=== PATIENT | female | born 1980 | race American Indian/Alaskan Native ===

== ENCOUNTER 2020-07-30 14:37 | Emergency (ER) | payer MEDICAID ==
[2020-07-30 14:43] VITALS: BP 153/93
[2020-07-30 17:09] LABS: Basophils % (Auto) 0.5 % (0.0-1.8); Eosinophils # (Auto) 0.1 K/mm3 (0.0-0.4); Hemoglobin 11.5 gm/dl (10.1-14.3); Lymphocytes # (Auto) 2.3 K/mm3 (1.2-5.4); Lymphocytes % (Auto) 25.7 % (13.4-35.0); Mean Corpuscular HGB Conc 33 % (30-34); Mean Corpuscular Volume 84 fl (79-97); Monocytes # (Auto) 0.7 K/mm3 (0.0-0.8); Monocytes % (Auto) 7.6 % (0.0-7.3); Platelet Count 288 K/mm3 (140-440); Red Blood Count 4.19 M/mm3 (3.65-5.03); Red Cell Distribution Width 13.8 % (13.2-15.2)
[2020-07-30 17:32] LABS: Alanine Aminotransferase 7 units/L (7-56); Albumin 3.7 g/dL (3.9-5); Blood Urea Nitrogen 6 mg/dL (7-17); Calcium 9.7 mg/dL (8.4-10.2); Hemolysis Index 1
[2020-07-30 17:35] LABS: BUN/Creatinine Ratio 15
== END 2020-07-30 20:45 | disposition left against medical advice (07) ==
LOC: ED 14:37
DX: Z53.21 Procedure and treatment not carried out due to patient leaving prior to being seen by health care provider (principal)
CPT/HCPCS: 36415; 80053; 84702; 85025

== ENCOUNTER 2020-12-28 02:49 | Inpatient (IN) | payer MEDICAID ==
[2020-12-28] MEDS ORDERED: ePHEDrine SULFATE 50 MG/1 ML INJ IV PRN ×2 (04:43→15:59)
[2020-12-28] MEDS ORDERED: MINERAL OIL 30 ML ORAL LIQD PO PRN (04:43)
[2020-12-28] MEDS ORDERED: TERBUTALINE 1 MG/1 ML INJ SUB-Q PRN (04:43)
[2020-12-28] MEDS ORDERED: AMPICILLIN/NS 2 GM/100 ML 2 GM/100 ML BAG IV ONE (04:43)
[2020-12-28] MEDS ORDERED: LOPERAMIDE 2 MG CAP PO PRN (04:43)
[2020-12-28] MEDS ORDERED: LIDOCAINE (2%) 20 MG/1 ML VIAL 20 ML MDV INFILTRATI ONE (04:43)
[2020-12-28] MEDS ORDERED: miSOPROStol 200 MCG TAB PR PRN (04:43)
[2020-12-28] MEDS ORDERED: ACETAMINOPHEN 325 MG TAB PO PRN (04:43)
[2020-12-28] MEDS ORDERED: BUTORPHANOL 2 MG/1 ML INJ IV PRN (04:43)
[2020-12-28] MEDS ORDERED: METHYLERGONOVINE MALEATE 0.2 MG/ML VIAL IM PRN (04:43)
[2020-12-28] MEDS ORDERED: OXYTOCIN 10 UNIT/1 ML INJ IM PRN (04:43)
[2020-12-28] MEDS ORDERED: CARBOPROST TROMETHAMINE 250 MCG/1 ML INJ IM PRN (04:43)
[2020-12-28] MEDS ORDERED: OXYTOCIN DRIP 30 UNITS/500 ML BAG IV SCH ×2 (05:00→10:00)
[2020-12-28 05:44] LABS: Hematocrit 36.6 % (30.3-42.9); Hemoglobin 11.9 gm/dl (10.1-14.3); Mean Corpuscular HGB Conc 33 % (30-34); Mean Corpuscular Volume 84 fl (79-97); Platelet Count 183 K/mm3 (140-440); Red Blood Count 4.37 M/mm3 (3.65-5.03); Red Cell Distribution Width 19.3 % (13.2-15.2)
[2020-12-28 05:48] LABS: Bacteria,Urine 2+ /HPF (Negative); Bilirubin,Urine NEG (Negative); Blood,Urine NEG (Negative); Color,Urine Yellow (Yellow); Protein,Urine <15 mg/dL mg/dL (Negative); Urobilinogen,Urine < 2.0 mg/dL (<2.0); WBC,Urine < 1.0 /HPF (0.0-6.0)
[2020-12-28 05:56] LABS: Amphetamine Screen,Urine PRESUMPTIVE NEGATIVE; Benzodiazepines Screen,Urine PRESUMPTIVE NEGATIVE; Cannabinoid Screen,Urine PRESUMPTIVE NEGATIVE; Cocaine Screen,Urine PRESUMPTIVE NEGATIVE; Methadone Screen,Urine PRESUMPTIVE NEGATIVE; Opiate Screen,Urine PRESUMPTIVE NEGATIVE
[2020-12-28 06:07] LABS: Alanine Aminotransferase 10 units/L (7-56); Uric Acid 4.4 mg/dL (3.5-7.6)
[2020-12-28] MEDS: LACTATED RINGERS 1,000 ML IV SCH ×2 (06:09→10:31)
[2020-12-28] MEDS: ONDANSETRON 4 MG/2 ML INJ IV PRN ×2 (06:09→13:14)
[2020-12-28] MEDS: fentaNYL 100 MCG/2 ML INJ IV PRN ×2 (06:10→13:13)
[2020-12-28 06:15] LABS: Hepatitis C Virus Antibody Non-Reactive (NonReactive)
--- NOTE | 2020-12-28 06:26 | History and Physical Report ---
History of Present Illness Date of examination: 12/28/20 Date of admission: 12/28/20 Chief complaint: ctx History of present illness: at 38.3wks by EDC 01/08/21 per pt report. care at [facility]. Pt gave H/O having ctx and was seen at [place] and discharged home. Pt states that she has Gest HTN and Gest DM diet controlled. pt denies h eadache. Denies LOF or vag bleed. Pt desires no future fertility. Pt is also followed by [facility], last seen on 12/26/20 with [facility] / and JAMAL 11. Past History Past Medical History: other (Obesity, gest DM and gest HTN) Past Surgical History: no surgical history - Obstetrical History Expected Date of Delivery: 01/08/21 Actual Gestation: 38 Week(s) 3 Day(s) : 4 Hx # Term Pregnancies: 3 Number of Living Children: 3 Medications and Allergies Allergies Allergy/AdvReac Type Severity Reaction Status Date / Time No Known Allergies Allergy Verified 12/08/18 06:42 Active Meds: Active Medications Acetaminophen (Acetaminophen 325 Mg Tab) 650 mg PO Q4H PRN PRN Reason: Pain, Mild (1-3) Butorphanol Tartrate (Butorphanol 2 Mg/1 Ml Inj) 1 mg IV Q2H PRN PRN Reason: Pain, Moderate(4-6) LABOR PAIN Carboprost Tromethamine (Carboprost Tromethamine 250 Mcg/1 Ml Inj) 250 mcg IM ONCE PRN PRN Reason: Uterine Bleeding Ephedrine Sulfate (Ephedrine Sulfate 50 Mg/1 Ml Inj) 10 mg IV Q2M PRN PRN Reason: Hypotension Fentanyl (Fentanyl 100 Mcg/2 Ml Inj) 100 mcg IV Q2H PRN PRN Reason: Pain,Severe (7-10) LABOR PAIN Last Admin: 12/28/20 06:10 Dose: 100 mcg Documented by: Lactated Ringer's (Lactated Ringers) 1,000 mls @ 125 mls/hr IV DIRECT GREGORY Last Admin: 12/28/20 06:09 Dose: 125 mls/hr Documented by: Oxytocin/Sodium Chloride (Pitocin/Ns 30 Unit/500ml) 30 units in 500 mls @ 40 mls/hr IV TITR GREGORY; Protocol Labetalol HCl (Labetalol 100 Mg Tab) 100 mg PO BID GREGORY Last Admin: 12/28/20 05:10 Dose: 100 mg Documented by: Loperamide HCl (Loperamide 2 Mg Cap) 2 mg PO ONCE PRN PRN Reason: give with Hemabate Methylergonovine Maleate (Methylergonovine Maleate 0.2 Mg/Ml Vial) 0.2 mg IM ONCE PRN PRN Reason: Uterine Bleeding Mineral Oil (Mineral Oil 30 Ml Oral Liqd) 30 ml PO QHS PRN PRN Reason: Constipation Misoprostol (Misoprostol 200 Mcg Tab) 800 mcg NC ONCE PRN PRN Reason: Uterine Bleeding Ondansetron HCl (Ondansetron 4 Mg/2 Ml Inj) 4 mg IV Q8H PRN PRN Reason: Nausea And Vomiting Last Admin: 12/28/20 06:09 Dose: 4 mg Documented by: Oxytocin (Oxytocin 10 Unit/1 Ml Inj) 10 unit IM ONCE PRN PRN Reason: Uterine Bleeding Terbutaline Sulfate (Terbutaline 1 Mg/1 Ml Inj) 0.25 mg SUB-Q ONCE PRN PRN Reason: Hyperstimulation/Hypertonicity Review of Systems All systems: negative (contractions) - Vital Signs Vital signs: Vital Signs Pulse BP Pulse Ox 83 147/97 98 12/28/20 03:32 12/28/20 03:32 12/28/20 03:32 Temp Pulse Resp BP Pulse Ox 98.3 F 84 18 149/98 98 12/28/20 03:54 12/28/20 06:02 12/28/20 03:54 12/28/20 06:02 12/28/20 05:07 - Physical Exam Breasts: Positive: deferred Cardiovascular: Regular rate Abdomen: Positive: normal appearance (obese), soft Vagina: Positive: normal moisture Uterus: Positive: enlarged (non-tender gravid) - Obstetrical FHR: category 1 Uterine Contraction Monitor Mode: External Cervical Dilatation: 4.5 (previously 2cm by triage ) Cervical Effacement Percentage: 70 station: -1 Uterine Contraction Pattern: Irregular Uterine Contraction Intensity: Moderate Results Result Diagrams: 12/28/20 05:25 12/28/20 05:25 Abnormal lab results 12/28/20 12/28/20 Range/Units 05:25 05:25 MCH 27 L (28-32) pg RDW 19.3 H (13.2-15.2) % Creatinine 0.5 L (0.6-1.2) mg/dL All other labs normal. Assessment and Plan Term preg, advanced maternal age with gest DM and gest HTN, now with elevated BP and no records 1. Admit to labor and delivery, unknown GBS and amp to be given 2. PIH labs and labetalol 100mg bid and will add mag sulfate if severe preeclampsia 3. Accucheck every 2hrs in active labor, now 104 4. IV pain med fentanyl given now prn and pt may have epidural when desired All questions encouraged and answered
[2020-12-28] MEDS ORDERED: PROMETHAZINE 25 MG TAB PO PRN (06:34)
[2020-12-28] MEDS ORDERED: hydrALAZINE 20 MG/1 ML INJ IV PRN (06:42)
[2020-12-28] MEDS ORDERED: MAGNESIUM SULFATE 4 GM/100 ML BAG IV ONE (09:47)
[2020-12-28] MEDS ORDERED: MAGNESIUM SULFATE 40GM/1000ML 40 GM/1,000 ML BAG IV SCH (10:00)
--- NOTE | 2020-12-28 10:03 | Event Note ---
Date: 12/28/20 BP increasing. Labetalol increased to 200 mg po BID. Patient also has hydralazine ordered for any markedly elevated BPs. Patient has nausea and swe lling. Denies headache at this time. Magnesium sulfate ordered due to preeclampsia with severe features. Pt. to have Jameson, strict I&O, and SCDs. Pitocin ordered for augmentation of labor. SVE 4.5/80/-3. Discussed all of the above with patient and patient's nurse. Consulted Dr. Victoria re: this patient.
[2020-12-28] MEDS ORDERED: AMPICILLIN/NS 1 GM/50 ML 1 GM/50 ML BAG IV SCH (11:00)
[2020-12-28] MEDS ORDERED: NALOXONE 2 MG/2 ML INJ IV PRN (15:59)
--- NOTE | 2020-12-28 15:59 | Anesthesia Consultation ---
Anesthesia Consult and Med Hx Date of service: 12/28/20 - Airway Anesthetic Teeth Evaluation: Good ROM Head & Neck: Adequate Mental/Hyoid Distance: Adequate Mallampati Class: Class II Intubation Access Assessment: Good - Pulmonary Exam CTA: Yes - Cardiac Exam Cardiac Exam: RRR - Pre-Operative Health Status ASA Pre-Surgery Classification: ASA1 Proposed Anesthetic Plan: Epidural - Pulmonary Hx Asthma: No COPD: No Hx Pneumonia: No - Cardiovascular System Hx Hypertension: Yes (2019 and current) - Central Nervous System Hx Seizures: No Hx Psychiatric Problems: No - Endocrine Hx Renal Disease: No Hx End Stage Renal Disease: No Hx Hypothyroidism: No Hx Hyperthyroidism: No - Hematic Hx Anemia: No Hx Sickle Cell Disease: No - Other Systems Hx Alcohol Use: No
[2020-12-28] MEDS ORDERED: fentaNYL-BUPIV 2 MCG/ML-0.125% 200 MCG/100 ML BAG EPIDURAL SCH (16:00)
--- NOTE | 2020-12-28 16:01 | Progress Note ---
Regional Anesthesia Block - Regional Anesthesia Block Start Time: 15:46 Stop Time: 15:51 Performed By:: AMOS YEUNG Procedure: Patient is requesting combined spinal epidural for labor and pain. H&P, labs were reviewed. All questions and concerns were answered. Informed consent was obtained. Timeout performed. Patient in sitting position on side of bed. Sterile prep and drape was performed. 3 mL 1% lidocaine skin wheal at L [3]-L [4]. 18-gauge Tuohy epidural needle advanced to [id number] using air technique, []. 27-gauge spinal needle advanced, positive free-flowing CSF. Spinal dose of [Precedex 10mcg]. Epidural catheter advanced to [15] cm. [negative] Aspiration, [negative] test dose. Sterile dressing applied. Patient tolerated procedure well.
[2020-12-28] MEDS ORDERED: diphenhydrAMINE 25 MG CAP PO PRN (18:51)
[2020-12-28] MEDS ORDERED: WITCH HAZEL/ GLYCERIN PAD TP PRN (18:51)
[2020-12-28] MEDS ORDERED: LANOLIN/ZINC/DIMETHICONE (LANSINOH) 7 GM TP PRN (18:51)
[2020-12-28] MEDS ORDERED: ONDANSETRON 4 MG/2 ML INJ IV PRN (18:51)
--- NOTE | 2020-12-28 18:59 | Procedure Note ---
OB Delivery Note - Delivery Date of Delivery: 12/28/20 Surgeon: DAVIDA CASTRO Estimated blood loss: 300cc - Vaginal Delivery presentation: vertex Delivery position: OA Intrapartum events: preeclampsia, shoulder dystocia Delivery induction: none Delivery augmentation: pitocin Delivery monitor: external FHT, external uterine Route of delivery: Delivery placenta: spontaneous Delivery cord: 3 umbilical vessels Episiotomy: none Delivery laceration: none Anesthesia: epidural Delivery comments: Spontaneous vaginal delivery at 18:24 of liveborn male infant weighing 7 lb. 13 oz. over intact perineum with apgars of 8/9. Preeclampsia with severe features, on magnesium sulfate. Diet controlled GDM. Left anterior shoulder dystocia resolved with McRobert's maneuver, suprapubic pressure, and delivery of posterior arm. Head to body delivery interval 30 seconds. Baby placed skin to skin with mom immediately after delivery. Spontaneous cry and respirations. Baby dried with warm towels and suctioned with bulb syringe. 3 vessel cord double clamped and cut (delayed cord clamping). Cord blood obtained. Spontaneous delivery of intact placenta and membranes at 18:32. Pitocin to IV fluids after delivery of placenta. EBL 300 cc. Cytotec 800 mcg given rectally due to atony. Fundus firm and midline at umbilicus. No lacerations noted. Vaginal sweep negative. Sponge count correct. Baby moving all extremities well.
[2020-12-28] MEDS: oxyCODONE /ACETAMINOPHEN 5-325MG TAB PO PRN (21:20)
[2020-12-28] MEDS ORDERED: miSOPROStol 200 MCG TAB ONE (21:55)
[2020-12-29 00:22] LABS: Hematocrit 36.5 % (30.3-42.9); Hemoglobin 11.6 gm/dl (10.1-14.3)
[2020-12-29] MEDS: oxyCODONE /ACETAMINOPHEN 5-325MG TAB PO PRN ×3 (03:28→20:37)
--- NOTE | 2020-12-29 04:29 | Ultrasound Report ---
ULTRASOUND PELVIS INDICATION: check for retained placenta. TECHNIQUE: Transabdominal. Duplex Color Doppler used: Yes. COMPARISON: None available FINDINGS: Uterus: Enlarged uterus Endometrial complex: Normal measuring 5 mm. Mass lesions: None. Additional findings: None. Right Ovary --not visualized secondary to bowel gas Left Ovary--not visualized secondary to bowel gas Urinary Bladder: Normal. Free Fluid: None. Additional Findings: None. IMPRESSION: 1. No acute sonographic abnormality of the pelvis. No sonographic evidence for retained products of c onception Signer Name: Cesar Bloom MD Signed: 12/29/2020 4:24 AM Workstation Name: [id number]
[2020-12-29 06:54] LABS: Hematocrit 31.5 % (30.3-42.9); Hemoglobin 10.6 gm/dl (10.1-14.3)
--- NOTE | 2020-12-29 09:54 | Post Anesthesia Evaluation ---
- Post Anesthesia Evaluation Patient Participated: Yes Airway Patent: Yes Stable Respiratory Function: Yes Nausea/Vomiting: No Temp > 96.8F: Yes Pain Manageable: Yes Adequeate Hydration: Yes Anesthesia Complications: No Block Receding Appropriately: Yes Patient on Ventilator: No
[2020-12-29] MEDS: FERROUS SULFATE 325 MG TAB PO SCH (10:01)
--- NOTE | 2020-12-29 13:10 | Progress Note ---
Assessment and Plan A: PP Day #1 Preeclampsia GDM A1 P: Follow Routine Orders Continue Labetalol 100mg PO BID Start GDM Diet Start Accuchecks after meals Subjective - Subjective Date of service: 12/29/20 Patient reports: appetite normal, voiding normally, pain well controlled, ambulating normally : doing well, bottle feeding (and ) Objective - Vital Signs Latest vital signs: Vital Signs Temp Pulse Resp BP BP Pulse Ox Pulse Ox 12/29/20 12:20 98.3 F 84 18 121/55 12/29/20 08:00 97.9 F 94 H 16 135/84 95 95 12/29/20 07:33 83 136/89 12/29/20 07:28 83 135/87 12/29/20 07:25 98.1 F 12/29/20 07:13 84 133/78 12/29/20 06:59 88 145/87 12/29/20 06:43 84 122/75 12/29/20 06:28 92 H 141/85 12/29/20 06:25 78 145/87 12/29/20 06:01 95 H 146/90 12/29/20 05:31 86 118/67 12/29/20 05:01 96 H 117/72 12/29/20 04:31 96 H 111/62 12/29/20 04:12 91 H 112/57 12/29/20 03:31 98 H 126/78 12/29/20 03:01 100 H 132/81 12/29/20 02:31 96 H 130/77 12/29/20 02:01 103 H 130/78 12/29/20 01:31 94 H 125/68 12/29/20 01:01 92 H 123/71 12/29/20 00:31 98 H 123/73 12/29/20 00:00 91 H 145/75 12/28/20 23:45 101 H 132/61 12/28/20 23:30 104 H 129/91 12/28/20 23:15 95 H 121/75 12/28/20 23:00 96 H 130/81 12/28/20 22:45 95 H 134/81 12/28/20 22:30 95 H 133/83 12/28/20 22:15 92 H 152/93 12/28/20 22:06 97 H 180/96 12/28/20 21:45 97 H 160/99 12/28/20 21:30 93 H 159/96 12/28/20 21:15 98 H 147/83 12/28/20 21:08 164/98 12/28/20 21:00 94 H 164/98 12/28/20 20:45 100 H 158/96 12/28/20 20:30 101 H 154/96 12/28/20 20:08 97 H 153/86 12/28/20 19:53 106 H 144/65 12/28/20 19:43 167/101 12/28/20 19:42 99 H 167/101 12/28/20 19:32 106 H 181/100 12/28/20 19:30 105 H 178/97 12/28/20 19:23 109 H 192/128 12/28/20 18:53 84 150/76 12/28/20 18:42 93 H 100 12/28/20 18:38 88 116/59 12/28/20 18:37 89 100 12/28/20 18:35 97.4 F L 20 12/28/20 18:33 129/79 12/28/20 18:32 92 H 99 12/28/20 18:27 94 H 100 12/28/20 18:23 95 H 140/82 12/28/20 18:22 100 H 99 12/28/20 18:17 91 H 100 12/28/20 18:12 93 H 97 12/28/20 18:10 85 110/63 12/28/20 18:07 83 98 12/28/20 18:02 93 H 99 12/28/20 17:57 97 H 100 12/28/20 17:54 82 119/66 12/28/20 17:52 93 H 99 12/28/20 17:47 90 99 12/28/20 17:42 106 H 98 12/28/20 17:38 113 H 90 12/28/20 17:37 105 H 97 12/28/20 17:32 81 99 12/28/20 17:30 97.7 F 12/28/20 17:27 72 99 12/28/20 17:23 77 120/67 12/28/20 17:22 84 100 12/28/20 17:17 75 98 12/28/20 17:12 74 99 12/28/20 17:09 78 120/69 12/28/20 17:07 75 99 12/28/20 17:02 84 99 12/28/20 16:57 81 100 12/28/20 16:53 77 134/84 12/28/20 16:52 76 100 12/28/20 16:47 68 100 12/28/20 16:42 72 100 12/28/20 16:37 84 119/78 100 12/28/20 16:32 72 100 12/28/20 16:27 72 100 12/28/20 16:22 84 131/87 100 12/28/20 16:19 86 127/96 12/28/20 16:17 71 100 12/28/20 16:16 68 133/86 12/28/20 16:13 67 130/86 12/28/20 16:12 80 93 12/28/20 16:10 83 132/89 12/28/20 16:07 84 143/83 98 12/28/20 16:04 86 145/76 12/28/20 16:02 76 96 12/28/20 16:01 94 H 139/88 12/28/20 15:58 92 H 144/93 12/28/20 15:57 81 96 12/28/20 15:55 96 H 140/91 93 12/28/20 15:53 86 144/72 12/28/20 15:52 88 97 12/28/20 15:50 87 187/76 12/28/20 15:47 86 169/93 95 12/28/20 15:45 88 174/107 94 12/28/20 15:42 96 H 99 12/28/20 15:39 81 94 12/28/20 15:37 79 95 12/28/20 15:33 79 94 12/28/20 15:32 82 98 12/28/20 15:30 98 F 21 12/28/20 15:27 94 H 95 12/28/20 15:22 85 99 12/28/20 15:17 73 167/98 97 12/28/20 15:15 76 192/100 12/28/20 15:12 78 99 12/28/20 15:07 81 96 12/28/20 15:04 81 94 12/28/20 15:02 73 96 12/28/20 14:58 89 94 12/28/20 14:57 82 97 12/28/20 14:52 78 97 12/28/20 14:51 87 93 12/28/20 14:47 81 95 12/28/20 14:45 82 93 12/28/20 14:44 81 153/98 12/28/20 14:42 85 96 12/28/20 14:37 72 96 12/28/20 14:34 46 L 93 12/28/20 14:32 80 97 12/28/20 14:27 77 95 12/28/20 14:26 71 93 12/28/20 14:22 88 99 12/28/20 14:17 71 96 12/28/20 14:14 77 145/81 12/28/20 14:12 88 97 12/28/20 14:07 87 99 12/28/20 14:02 66 96 12/28/20 13:57 83 96 12/28/20 13:52 64 97 12/28/20 13:47 70 97 12/28/20 13:44 75 134/81 12/28/20 13:42 78 97 12/28/20 13:37 93 H 94 12/28/20 13:35 96 H 94 12/28/20 13:32 80 95 12/28/20 13:27 86 95 12/28/20 13:25 85 94 12/28/20 13:22 74 95 12/28/20 13:17 74 98 12/28/20 13:15 72 160/96 12/28/20 13:13 18 12/28/20 13:12 81 98 Intake and Output 12/28/20 12/29/20 12/29/20 22:59 06:59 14:59 Intake Total 559.300 240 Output Total 1700 1200 500 Balance -1140.700 -1200 -260 Intake: IV 559.300 MAGNESIUM SULFATE 40GM/ 545 1000ML 40 gm In 1,000 ml @ 2 GM/HR 50 mls/hr IV DIRECT GREGORY Rx#:[id number] PITOCin/NS 30 UNIT/500ML 14.300 30 units In 500 ml @ 2 mls/hr IV TITR GREGORY Rx#: [id number] Oral 240 Output: Urine 1700 700 500 Indwelling Catheter 1700 700 Void 500 Other 500 Other: Total, Intake Amount 240 Total, Output Amount 900 200 200 Estimated Blood Loss 300 - Exam Breasts: Present: normal Cardiovascular: Present: Regular rate Lungs: Present: Clear to auscultation, Normal air movement Abdomen: Present: normal appearance, soft, normal bowel sounds Uterus: Present: normal, firm, fundal height below umbilicus Extremities: Present: normal - Labs Labs: Abnormal lab results 12/28/20 12/28/20 12/29/20 Range/Units 17:42 23:30 06:35 Magnesium 5.20 H 4.10 H 3.20 H (1.7-2.3) mg/dL
[2020-12-30] MEDS: oxyCODONE /ACETAMINOPHEN 5-325MG TAB PO PRN ×2 (05:33→18:49)
[2020-12-30] MEDS: FERROUS SULFATE 325 MG TAB PO SCH (09:41)
--- NOTE | 2020-12-30 14:23 | Progress Note ---
Assessment and Plan PPD#2 with gest HTN not well controlled and having heavy vag bleeding 1. continue labetalol 2000mg bid and add norvasc 5mg daily if same elevated 2. will check ultrasound for retained products post delivery 3. Will check CBC now 4. May discharge home in am if BP stable and no retained products Subjective Date of service: 12/30/20 Principal diagnosis: PPD#2, gest HTN not well controlled and with heavy vag bleed Interval history: Pt is breast feeding and receiving labetalol 100mg bid; I assisted pt to restroom while rounding and she showed with a large clot approx 3x4cm size and dark in color. Pt denies dizziness or headache. Pt also states she is not is much pain. Voiding without difficulty. pt denies headache. Objective - Constitutional Vitals: Vital Signs - 12hr 12/30/20 12/30/20 12/30/20 04:00 05:33 06:30 Temperature 98.4 F Pulse Rate 68 Respiratory 18 Rate Blood Pressure Blood Pressure 112/74 [Right] O2 Sat by Pulse Oximetry O2 Sat by Pulse 98 98 Oximetry [ Anterior Bilateral Throughout] 12/30/20 12/30/20 12/30/20 08:05 09:07 09:41 Temperature 98.3 F Pulse Rate 79 77 Respiratory 18 Rate Blood Pressure 136/80 149/89 Blood Pressure [Right] O2 Sat by Pulse 93 Oximetry O2 Sat by Pulse 98 Oximetry [ Anterior Bilateral Throughout] 12/30/20 11:28 Temperature 98.5 F Pulse Rate Respiratory 18 Rate Blood Pressure 132/77 Blood Pressure [Right] O2 Sat by Pulse Oximetry O2 Sat by Pulse Oximetry [ Anterior Bilateral Throughout] General appearance: Present: no acute distress - Respiratory Respiratory effort: normal - Breasts Breasts: normal - Cardiovascular Rhythm: regular Extremities: No edema - Gastrointestinal General gastrointestinal: Present: soft, non-tender - Genitourinary Female genitourinary: other (Uterine fundus non-tender and 1cm above umbilicus after voiding) - Neurologic Neurologic: moves all extremities - Psychiatric Psychiatric: cooperative - Labs CBC & Chem 7: 12/29/20 06:35 12/28/20 05:25 Medications & Allergies - Medications Allergies/Adverse Reactions: Allergies No Known Allergies Allergy (Verified 12/08/18 06:42) Home Medications: Home Medications Medication Instructions Recorded Confirmed Last Taken Type No Known Home Medications [No 12/29/20 12/29/20 Unknown History Reported Home Medications] Active Medications: Generic Name Dose Route Start Last Admin Trade Name Freq PRN Reason Stop Dose Admin Acetaminophen 650 mg 12/28/20 04:43 Acetaminophen 325 Mg Tab PO Q4H PRN Pain, Mild (1-3) Amlodipine Besylate 5 mg 12/31/20 10:00 Amlodipine 5 Mg Tab PO QDAY GREGORY Butorphanol Tartrate 1 mg 12/28/20 04:43 Butorphanol 2 Mg/1 Ml Inj IV Q2H PRN Pain, Moderate(4-6) LABOR PAIN Diphenhydramine HCl 25 mg 12/28/20 18:51 Diphenhydramine 25 Mg Cap PO Q6H PRN Itching Ephedrine Sulfate 10 mg 12/28/20 15:59 Ephedrine Sulfate 50 Mg/1 Ml Inj IV Q2M PRN Hypotension Fentanyl 100 mcg 12/28/20 04:43 12/28/20 13:13 Fentanyl 100 Mcg/2 Ml Inj IV 100 mcg Q2H PRN Administration Pain,Severe (7-10) LABOR PAIN Ferrous Sulfate 325 mg 12/29/20 10:00 12/30/20 09:41 Ferrous Sulfate 325 Mg Tab PO 325 mg QDAY GREGORY Administration Hydralazine HCl 5 mg 12/28/20 06:42 12/28/20 19:43 Hydralazine 20 Mg/1 Ml Inj IV 5 mg Q30MIN PRN Administration Hypertension Lactated Ringer's 1,000 mls @ 125 mls/hr 12/28/20 04:45 12/28/20 10:31 Lactated Ringers IV 125 mls/hr DIRECT GREGORY Administration Oxytocin/Sodium Chloride 30 units in 500 mls @ 40 mls/hr 12/28/20 05:00 Pitocin/Ns 30 Unit/500ml IV TITR GREGORY Protocol Ampicillin Sodium 1 gm in 50 mls @ 100 mls/hr 12/28/20 11:00 12/28/20 10:30 Ampicillin/Ns 1 Gm/50 Ml IV 100 mls/hr Q4H GREGORY Administration Protocol Magnesium Sulfate 40 gm in 1,000 mls @ 50 mls/hr 12/28/20 10:00 12/28/20 22:00 Magnesium Sulfate 40gm/1000ml IV 0 gm/hr DIRECT GREGORY 0 mls/hr Infusion 2 GM/HR Oxytocin/Sodium Chloride 30 units in 500 mls @ 2 mls/hr 12/28/20 10:00 12/28/20 17:25 Pitocin/Ns 30 Unit/500ml IV 4 mls/hr TITR GREGORY 4 mls/hr Titration Protocol Fentanyl/Bupivacaine/Sodium Chlor 200 mcg in 100 mls @ 12 mls/hr 12/28/20 16:00 12/28/20 16:46 Fentanyl-Bupiv 2 Mcg/Ml-0.125% EPIDURAL 12 mls/hr TITR GREGORY Administration Protocol Labetalol HCl 200 mg 12/29/20 10:00 12/30/20 09:41 Labetalol 200 Mg Tab PO 200 mg BID GREGORY Administration Methylergonovine Maleate 0.2 mg 12/28/20 04:43 Methylergonovine Maleate 0.2 Mg/Ml Vial IM ONCE PRN Uterine Bleeding Mineral Oil 30 ml 12/28/20 04:43 Mineral Oil 30 Ml Oral Liqd PO QHS PRN Constipation Multi-Ingredient Ointment 1 applic 12/28/20 18:51 Lanolin/Zinc/Dimethicone (Lansinoh) 7 Gm TP PRN PRN Sore Nipples Naloxone HCl 0.2 mg 12/28/20 15:59 Naloxone 2 Mg/2 Ml Inj IV Q5M PRN Respiratory sedation Ondansetron HCl 4 mg 12/28/20 04:43 12/28/20 13:14 Ondansetron 4 Mg/2 Ml Inj IV 4 mg Q8H PRN Administration Nausea And Vomiting Ondansetron HCl 4 mg 12/28/20 18:51 Ondansetron 4 Mg/2 Ml Inj IV Q8H PRN Nausea And Vomiting Oxycodone/Acetaminophen 1 tab 12/28/20 18:51 12/30/20 05:33 Oxycodone /Acetaminophen 5-325mg Tab PO 1 tab Q6H PRN Administration Pain, Moderate (4-6) Oxytocin 10 unit 12/28/20 04:43 Oxytocin 10 Unit/1 Ml Inj IM ONCE PRN Uterine Bleeding Promethazine HCl 25 mg 12/28/20 06:34 Promethazine 25 Mg Tab PO Q6H PRN Nausea And Vomiting Sodium Chloride 10 ml 12/28/20 19:00 Sodium Chloride 0.9% 10 Ml Flush Syringe IV 01/07/21 23:59 PRN NR Terbutaline Sulfate 0.25 mg 12/28/20 04:43 Terbutaline 1 Mg/1 Ml Inj SUB-Q ONCE PRN Hyperstimulation/Hypertonicity Witch Jenifer/Glycerin 1 each 12/28/20 18:51 Witch Jenifer/ Glycerin Pad TP PRN PRN Hemorrhoid/cleansing/soothing
[2020-12-30 19:08] LABS: Basophils % (Auto) 0.3 % (0.0-1.8); Eosinophils # (Auto) 0.1 K/mm3 (0.0-0.4); Eosinophils % (Auto) 1.6 % (0.0-4.3); Hematocrit 29.7 % (30.3-42.9); Hemoglobin 9.9 gm/dl (10.1-14.3); Lymphocytes % (Auto) 25.4 % (13.4-35.0); Mean Corpuscular HGB Conc 33 % (30-34); Mean Corpuscular Volume 83 fl (79-97); Monocytes # (Auto) 0.7 K/mm3 (0.0-0.8); Monocytes % (Auto) 8.4 % (0.0-7.3); Platelet Count 184 K/mm3 (140-440); Red Cell Distribution Width 19.5 % (13.2-15.2)
[2020-12-31] MEDS ORDERED: IBUPROFEN 600 MG TAB PO SCH (06:00)
--- NOTE | 2020-12-31 06:52 | Ultrasound Report ---
ULTRASOUND PELVIS INDICATION: vag delivery, PPD#2, heavy bleed,HTN, high fundus. TECHNIQUE: Transabdominal. Duplex Color Doppler used: Yes. COMPARISON: None available FINDINGS: Uterus: Present. Size: Markedly enlarged measuring 21 x 8.5 x 12 cm. Endometrial complex: Thickened and heterogeneous measuring 18 mm. Mass lesions: 2.2 cm uterine fibroid. Additional findings: None. Right Ovary --not visualized secondary to bowel gas Left Ovary: Not visualized secondary to bowel gas Urinary Bladder: Normal. Free Fluid: None. Additional Findings: None. IMPRESSION: 1. Enlarged uterus. 2. Thickened heterogeneous endometrial stripe status post 3. 2.2 cm uterine fibroid Signer Name: Cesar Bloom MD Signed: 12/31/2020 6:47 AM Workstation Name: [id number]
[2020-12-31] MEDS ORDERED: amLODIPine 5 MG TAB PO SCH (10:00)
[2020-12-31] MEDS: FERROUS SULFATE 325 MG TAB PO SCH (10:06)
[2020-12-31 11:42] VITALS: BP 148/88
--- NOTE | 2020-12-31 11:51 | Progress Note ---
Assessment and Plan A: PP Day #3 Preeclampsia GDM A1 Asymptomatic Anemia P: Follow Routine Orders Continue Labetalol 200mg PO BID Consulted Dr. Alvarez; may discharge home on Labatolol today Labatolol 200mg PO BID and Motrin 800mg q 8 hours PRN pain, called in to [facility] pharmacy on [address] [place], [place] Patient states she can not return to Dr. Ac's office for 90 days; Given phone number to [facility] Return to [facility] in 2 Weeks Subjective - Subjective Date of service: 12/31/20 Principal diagnosis: PPD#2, gest HTN not well controlled and with heavy vag bleed Patient reports: appetite normal, voiding normally, pain well controlled, flatus, ambulating normally, other (Denies HAs, visual changes, N&V, and epigastic pain) : doing well, bottle feeding Objective - Vital Signs Latest vital signs: Vital Signs Temp Pulse Resp BP BP Pulse Ox Pulse Ox 12/31/20 11:22 98.2 F 86 18 148/88 95 12/31/20 10:08 154/88 12/31/20 08:31 98.2 F 69 18 154/88 99 12/31/20 07:30 97 12/31/20 05:04 98.1 F 94 H 20 135/84 98 12/31/20 01:02 98.2 F 84 20 136/78 93 12/30/20 22:03 152/89 12/30/20 20:47 98.3 F 95 H 20 152/89 95 12/30/20 20:45 97 12/30/20 16:20 98.3 F 87 20 134/55 Intake and Output 12/30/20 12/31/20 12/31/20 22:59 06:59 14:59 Intake Total 560 360 600 Balance 560 360 600 Intake: Oral 560 360 Intake, Free Water 360 240 Other: Total, Intake Amount 240 240 # Voids Void 1 1 1 - Exam Breasts: Present: normal Cardiovascular: Present: Regular rate Lungs: Present: Clear to auscultation, Normal air movement Abdomen: Present: normal appearance, soft, normal bowel sounds Uterus: Present: normal, firm, fundal height below umbilicus Extremities: Present: normal - Labs Labs: Abnormal lab results 12/30/20 Range/Units 18:35 RBC 3.60 L (3.65-5.03) M/mm3 Hgb 9.9 L (10.1-14.3) gm/dl Hct 29.7 L (30.3-42.9) % MCH 27 L (28-32) pg RDW 19.5 H (13.2-15.2) % [place] % (Auto) 8.4 H (0.0-7.3) %
--- NOTE | 2020-12-31 11:53 | Discharge Summary ---
Providers - Providers Date of Admission: 12/28/20 04:43 Date of discharge: 12/31/20 Attending physician: TRACE SALAMANCA Primary care physician: TRACE SALAMANCA Hospitalization Reason for admission: active labor Delivery: Episiotomy: none Laceration: none Other procedures: none complications: none Discharge diagnosis: IUP at term delivered [place] baby: male Condition at discharge: Good Disposition: 01 HOME / SELF CARE / HOMELESS Plan - Provider Discharge Summary Activity: routine, no sex for 6 weeks, no heavy lifting 4 weeks, no strenuous exercise Diet: routine Instructions: routine Additional instructions: [] Smoking cessation referral if applicable(refer to patient education folder for contact #) [] Refer to [facility]'s [facility] Booklet Call your doctor immediately for: * Fever > 100.5 * Heavy vaginal bleeding ( >1 pad per hour) * Severe persistent headache * Shortness of breath * Reddened, hot, painful area to leg or breast * Drainage or odor from incision. * Keep incision clean and dry at all times and follow doctor's instructions regarding bathing/showering - Follow up plan Follow up: TRACE SALAMANCA MD [Primary Care Provider] - 14 Days
== END 2020-12-31 14:20 | disposition home or self-care (01) | DRG 775 ==
LOC: TRG 02:49 → APU 03:40 → TRG 04:43 → LD 04:43 → OB 12-29 07:45
PROVIDERS: ADMIT Obstetrics & Gynecology; ATTEND Obstetrics & Gynecology
PROC: 10E0XZZ Delivery of Products of Conception, External Approach (ICD-10-PCS; principal; 2020-12-28)
PROC: 3E0R3BZ Introduction of Anesthetic Agent into Spinal Canal, Percutaneous Approach (ICD-10-PCS; 2020-12-28)
PROC: 00HU33Z Insertion of Infusion Device into Spinal Canal, Percutaneous Approach (ICD-10-PCS; 2020-12-28)
DX: O14.14 Severe pre-eclampsia complicating childbirth (principal); O24.429 Gestational diabetes mellitus in childbirth, unspecified control; O13.4 Gestational [pregnancy-induced] hypertension without significant proteinuria, complicating childbirth; Z3A.38 38 weeks gestation of pregnancy; Z37.0 Single live birth; Z20.822 Contact with and (suspected) exposure to COVID-19; O66.0 Obstructed labor due to shoulder dystocia; O90.81 Anemia of the puerperium
CPT/HCPCS: 36415; 59025; 76857; 80307; 81001; 82565; 82962; 83615; 83735; 84450; 84460; 84550; 85014; 85018; 85025; 85027; 85461; 86592; 86706; 86762; 86803; 86850; 86870; 86900; 86901; 87806; 88307; 99211; G0378; G0463; J0290; J0360; J2405; J2590; J2790; J3010; J3475; J7120; U0003